=== PATIENT | male | born 1985 | race Caucasian/White ===

== ENCOUNTER 2025-01-16 04:04 | Emergency (ER) | payer OTHER, SELFPAY ==
[2025-01-16 04:05] VITALS: BP 138/80; BMI 24.7
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
== END 2025-01-16 06:06 ==
LOC: EMR 04:04
PROVIDERS: EMERGENCY PHYSICIAN Emergency Medicine
DX: S00.03XA Contusion of scalp, initial encounter (principal); Y00.XXXA Assault by blunt object, initial encounter; Z02.89 Encounter for other administrative examinations; F17.200 Nicotine dependence, unspecified, uncomplicated; Z91.81 History of falling
CPT/HCPCS: 99284; 70450

== ENCOUNTER 2025-06-22 19:03 | Emergency (ER) | payer SELFPAY ==
[2025-06-22 19:22] VITALS: BP 161/122
[2025-06-22 19:45] VITALS: BP 162/98
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
== END 2025-06-22 20:10 ==
LOC: EMR 19:03
PROVIDERS: EMERGENCY PHYSICIAN Emergency Medicine
DX: S00.83XA Contusion of other part of head, initial encounter (principal); V49.88XA Car occupant (driver) (passenger) injured in other specified transport accidents, initial encounter; F17.200 Nicotine dependence, unspecified, uncomplicated; R45.1 Restlessness and agitation; Z65.3 Problems related to other legal circumstances
CPT/HCPCS: 99282